=== PATIENT | male | born 1990 | race Caucasian/White ===

== ENCOUNTER 2018-03-02 13:53 | Emergency (ER) | payer BC, SELFPAY ==
[2018-03-02 13:54] VITALS: BP 147/77; PULSE 78; RESP 16; TEMP 36.8; O2SAT 99; BMI 22.7
--- NOTE | 2018-03-02 14:09 | ED.RN ---
1:1 sitter initiated. clothing being removed from room.
[2018-03-02 14:47] LABS: Amphetamine Urine VISTA NEGATIVE (<1000 ng/mL); Barbiturate Urine VISTA NEGATIVE (< 200 ng/mL); Benzodiazepine Urine VISTA NEGATIVE (< 200 ng/mL); Cocaine Urine VISTA NEGATIVE (< 300 ng/mL); Ecstacy Urine VISTA NEGATIVE (< 500 ng/mL); Methadone Urine VISTA NEGATIVE (< 300 ng/mL); PCP Urine VISTA NEGATIVE (< 25 ng/mL); THC Urine VISTA POSITIVE (< 50 ng/mL); Vista UDS pH Range 7
[2018-03-02 14:52] LABS: Absolute Lymphocyte Count 1.61 X10^3/ul (0.83-4.51); Absolute Neutrophil Count 8.6 X10^3/uL (2.0-7.7); Basophil# 0.06 X10^3/uL; Basophil% 0.5 % (0-1); Eosinophil# 0.05 X10^3/uL; Eosinophils% 0.5 % (0-5); Hematocrit 49.3 % (40-54); Hemoglobin 16.6 g/dl (13.0-16.5); Lymphocyte # 1.61 X10^3/ul (4.0); Lymphocyte % 14.7 % (19-41); Mean Corp Hgb Conc 33.7 g/gl (32-36); Mean Corpuscular Volume 89.2 fL (80-94); Mean Platelet Vol. 11.4 fl (6.2-12.0); Monocyte# 0.63 X10^3/uL; Monocyte% 5.7 % (0-10); Neutrophil % 78.3 % (47-70); POSITIVE COUNT NO; POSITIVE DIFFERENTIAL NO; POSITIVE MORPHOLOGY NO; Platelet Count 196 K/mm3 (150-450); RBC Distribution Width CV 13.6 % (11.6-14.6); RBC Distribution Width SD 44.5 fl (35.1-43.9); Red Blood Count 5.53 M/mm3 (4.6-6.2)
[2018-03-02 15:10] LABS: ALB/GLOB Ratio 1.3 RATIO (0.9-2.4); AST(SGOT) 14 U/L (15-37); Alanine Aminotransfer ALT/SGPT 27 U/L (16-61); Albumin, Serum 4.3 g/dL (3.2-5.0); Alkaline Phosphatase 109 U/L (45-117); Anion Gap 8 (5-15); BUN 13 mg/dL (7-18); BUN/Creat Ratio 17.4 RATIO (10-20); Calcium,Total 9.1 mg/dL (8.5-10.1); Chloride 105 mmol/L (98-107); Creatinine, Serum 0.75 mg/dL (0.70-1.30); EST Glomerular Filtration Rate 132 mL/min (>60); Est Glom Filt Rate - Afr Amer 159 mL/min (>60); Estimated Creatinine Clearance 136.41 ml/min; Globulin 3.3 g/dL (2.2-4.2); Glucose 86 mg/dL (74-106); Protein, Total 7.6 g/dL (6.4-8.2); Sodium Level 138 mmol/L (136-145)
[2018-03-02 15:13] LABS: Alcohol, Blood (Medical)-Serum < 3.0 mg/dL
--- NOTE | 2018-03-02 15:35 | ED.VISSUMM ---
- ER Visit Summary Date of Service: 03/02/18 Chief Complaint: Suicidal thoughts History of Present Illness: The patient is a 27 M who is complaining of suicidal thoughts for several months. Symptoms were worse after recent breakup with his girlfriend. He does not have a plan. No history of suicide attempts or thoughts. No history of psychiatric hospitalization. No history of psychiatric diagnoses. He does not take any medications. No medical complaints. Physical Examination: Afebrile and vital signs unremarkable. Patient has poor eye contact and a depressed mood but is otherwise certain oriented. Head and neck atraumatic. Heart regular. Lungs clear. Abdomen soft and nontender. Extremities atraumatic. No track blackwell. Test Results: Laboratory studies fairly unremarkable except for hemoglobin of 16.6 and a positive THC. Emergency Department Course and Treatment: Patient has suicidal thoughts and a depressed mood. No plan. He would like to get help. He spoke with our social worker delinquency prevention. He was able to contract for safety. He does not want to hurt self. He is displaying forward thinking, and he would like to get help. He was given referral for outpatient follow-up. Patient will be discharged. Treatment Plan: As above Disposition: Discharge Impression: 1. Mood disorder This note was generated with [employer] dictation software. It may contain incorrect words, spelling, and punctuation that were not noted in review of the chart prior to signing ED Disposition - Plan for ED Patient: Chief Complaint: Suicidal Referrals: Care Physician,No Primary [Primary Care Provider] -
--- NOTE | 2018-03-02 15:35 | CM.ED ---
Social Work Assessment Reason for Consult: Suicidal Ideation Informant: Dr. Neves Information obtained from: Medical record and pt. Pt is a 27 y/o male that presents with depressed affect as evidenced by tearfulness throughout assessment. Pt is alert and oriented and able to participate in assessment. For the first 20 minutes of assessment pt had poor eye contact, but towards the end was able to maintain contact and was more optimistic as evidenced by futuristic thoughts and smiling. Living Situation: Pt reports to live alone in a private home. Ex-girlfriend had lived with him, but they have been split up and she has not lived there since. She has been over often. Employment: Pt is employed FT at a [employer] in [place]. Reports to feel financially stable. Transportation: Reports access to transportation. Supports: Pt identifies his ex-girlfriend, Priscilla, as his primary support. States that his mother and two younger step brothers live in [place], but he does not always see them due to distance. However, reports that he has a good relationship with his mother. Social/Family Stressors: Pt identifies primary stress as break up with his girlfriend 6 months ago. Reports that they have been together 8 years, and he moved back here from [place] to be with her. States that they have been on and off for 6 months since the initial breakup. Mental Health History: Pt denies any formal diagnoses. States that he was in counseling in [place] as a kid, and went to counseling at [facility] in [facility] following initial breakup. Does not remember the name of his counselor, but states he has not seen her in 2-3 months. Claims that it felt very one-sided. Educate pt to other forms of therapy and other agencies. Discuss [facility] and pt states that it may help to hear others. Pt is agreeable to a follow-up appointment with [facility] on 03/03/18 at 0900. Pt smiles and states I do not know the difference between a psychiatrist and psychologist, but maybe I need medication? Educate pt to the difference between a psychiatrist and psychologist and inform that our [facility] has a psychiatrist that is on staff on Fridays if he would require medication assistance. Substance Use Hx: Pt denies any illicit drug use. ASSESSMENT: Upon entry into room, pt's ex-girlfriend, Priscilla is present. Request that she exit. Introduced self and role at [facility]. Pt presents with depressed affect initially as evidenced by tearfulness and minimal eye contact in beginning of assessment. Pt has no suicide attempt hx, no intent, plan or means at this time. Throughout conversation and education of services pt becomes more futuristic in verbalized thoughts, and states, I need to do something to get better. Pt is agreeable to an appointment with [facility] at 0900 on 03/03/18. Pt provided with community mental health resources, crisis line, [facility] phone number as well as this fiction writer's contact information and informed this fiction writer is on staff until 2300 tonight. Pt denies access or possession of guns or other weapons. Encourage pt to stay with someone or have someone stay with him and pt is agreeable. Out to waiting room to retrieve Priscilla. Pt had suggested Priscilla stay. Before reentering room inquire if Priscilla feels comfortable staying with the pt overnight. Priscilla states yes and that she can stay until about 1030 as she works at 1100. Accompany Priscilla into room. Discuss and confirm discharge plan with both the pt and Priscilla. Both express agreement. Make Priscilla aware of resources provided to pt as well. At this time no further questions or needs identified. Updated physician and RN of plan. Pt to be discharged home with support of Priscilla. Intervention(s): Referral to [facility]. Faxed over referral form and spoke with NILESH Peoples, [employer] who confirmed a 9am f/u appointment. Provided pt with community mental health resources, suicide prevention/crisis line, [facility] contact and ED SW contact. Confirmed safe discharge plan home with friend, Priscilla, to stay present with pt from discharge until his f/u appointment 03/03/18. Recommended removal of 1:1 sitter. PLAN: Discharge home with support of friend, Priscilla. F/U appointment at [facility] on 03/04/18 at 0900. Anastacia Zaidi, AUDIO VISUAL TECHNICIAN, HEALTH AND PHYSICAL EDUCATION PROFESSOR
--- NOTE | 2018-03-02 15:37 | ED.DEP ---
ED Disposition - Plan for ED Patient: Chief Complaint: Suicidal Instructions: ED Contract, No Harm Additional Instructions: as instructed by social work
== END 2018-03-02 15:48 | disposition home or self-care (01) ==
LOC: ED 14:34
PROVIDERS: Emergency Provider Emergency Medicine
DX: F32.9 Major depressive disorder, single episode, unspecified (principal); R45.851 Suicidal ideations; F41.9 Anxiety disorder, unspecified; Z72.0 Tobacco use
CPT/HCPCS: 80053; 80307; 80320; 85025; 99283; G0480

== ENCOUNTER 2021-03-22 04:30 | Emergency (ER) | payer SELFPAY ==
[2021-03-22 04:31] VITALS: BP 143/89; PULSE 110; RESP 18; TEMP 36.2; O2SAT 97; BMI 24.5
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
[2021-03-22] MEDS: Naproxen 500 MG Tablet PO (04:41)
[2021-03-22] MEDS: Lidocaine 1% (20 ml mdv) 20 ML Vial INFILT (04:41)
[2021-03-22] MEDS: Amox/Clavulanate 875 MG Tablet PO (04:41)
[2021-03-22 05:29] VITALS: BP 140/62; PULSE 90; RESP 18; O2SAT 97
== END 2021-03-22 05:30 | disposition home or self-care (01) ==
LOC: ED 05:18
PROVIDERS: Emergency Provider Emergency Medicine; Visit Provider Emergency Medicine
DX: S60.571A Other superficial bite of hand of right hand, initial encounter (principal); S60.472A Other superficial bite of right middle finger, initial encounter; W54.0XXA Bitten by dog, initial encounter; Y93.9 Activity, unspecified; Y92.9 Unspecified place or not applicable; F17.210 Nicotine dependence, cigarettes, uncomplicated
CPT/HCPCS: 12002; 99284